=== PATIENT | male | born 1995 | race Hispanic/Latino ===

== ENCOUNTER → 2023-03-12 | Day surgery (SDC) | payer BC ==
[~2023-03-12] MED LIST: HYOSCYAMINE SULFATE 0.5 MG/ML INJ ONE; LACTATED RINGER'S 1,000 ML ONE; LIDOCAINE HCL 2% LOCAL INJ 5 ML SDV VIAL INJ ONE; MULTI-VITAMIN1 EACH PO; PROPOFOL IV EMULSION 10 MG/ML 20 ML VIAL ONE; SIMETHICONE 40 MG/0.6 ML BTL ONE; VIT D PO
[2023-03-12 13:02] VITALS: TEMP 97.1; O2SAT 95
[2023-03-12 13:30] VITALS: BP 112/66; PULSE 71; RESP 18
== END | disposition home or self-care (01) ==
LOC: OR 10:36
PROVIDERS: ATTEND Internal Medicine Gastroenterology
DX: K62.5 Hemorrhage of anus and rectum (principal); D12.3 Benign neoplasm of transverse colon; K64.8 Other hemorrhoids; Z71.3 Dietary counseling and surveillance; Z68.29 Body mass index [BMI] 29.0-29.9, adult; Z86.16 Personal history of COVID-19
CPT/HCPCS: 45385; J1980; J2001; J2704; J7121